=== PATIENT | male | born 1950 | race Caucasian/White ===

== ENCOUNTER 2017-07-23 09:10 | Emergency (ER) | payer MEDICARE ==
[2017-07-23] MEDS ORDERED: Sulfameth/Trimethoprim DS 800-160mg TAB ONE (09:26)
[2017-07-23] MEDS ORDERED: Triple Antibiotic Oint 1 GM Packet ONE (09:26)
== END 2017-07-23 09:32 | disposition home or self-care (01) ==
LOC: BURERS 09:10
DX: L03.115 Cellulitis of right lower limb (principal); E78.5 Hyperlipidemia, unspecified; E11.9 Type 2 diabetes mellitus without complications; Z79.4 Long term (current) use of insulin
CPT/HCPCS: 99283